=== PATIENT | female | born 1995 | race Caucasian/White ===

== ENCOUNTER 2017-02-27 11:26 | Emergency (ER) | payer OTHER ==
[2017-02-27 11:50] VITALS: O2SAT 98
[2017-02-27] MEDS ORDERED: LORazepam 2 MG/ML INJ IVP ONE (12:01)
[2017-02-27] MEDS ORDERED: NS 1,000 ML IV ONE (12:01)
--- NOTE | 2017-02-27 12:04 | EDPHY ---
H & P Stated Complaint: Vertigo ;developed tunnel vision,mouth numbness 2 days ago Time Seen by Provider: 02/27/17 11:49 HPI/ROS: CHIEF COMPLAINT: Paresthesias HISTORY OF PRESENT ILLNESS: The patient is a 21-year-old female who comes to the emergency department her mom complaining of paresthesias in her mouth, both hands and both feet as well as face bilaterally. She also complains of tunnel vision in her right eye worse than her left. She states that she had a cough last week that resolved with on Monday but then on Monday she began having some vertigo which resolved by Monday but since Monday he has had these strange paresthesias. No chest pain or shortness of breath. She has a history of significant anxiety as well as a stutter. Mom states that these have not changed. She has not had any difficulty speaking or moving. No weakness or numbness. No bowel or bladder abnormalities. No recent fevers or infections. She did get a flu shot several months ago. REVIEW OF SYSTEMS: Constitutional: denies: chills, fever, recent illness, recent injury EENTM: denies: blurred vision, double vision, nose congestion Respiratory: denies: cough, shortness of breath Cardiac: denies: chest pain, irregular heart rate, lightheadedness, palpitations Gastrointestinal/Abdominal: denies: abdominal pain, diarrhea, nausea, vomiting, blood streaked stools Genitourinary: denies: dysuria, frequency, hematuria, pain Musculoskeletal: denies: joint pain, muscle pain Skin: denies: lesions, rash, jaundice, bruising Neurological: See HPI Hematologic/Lymphatic: denies: blood clots, easy bleeding, easy bruising Immunologic/allergic: denies: HIV/AIDS, transplant - Physical Exam General Appearance: WD/WN, mild distress Eyes, Ears, Nose, Throat Exam: PERRL/EOMI, normal ENT inspection, pharynx normal normal peripheral exam on confrontational testing Neck: non-tender, full range of motion, supple, normal inspection. No: stiff neck, tender lateral Cardiovascular/Chest: normal peripheral pulses, regular rate, rhythm Respiratory: chest non-tender, lungs clear, normal breath sounds. No: crackles , rhonchi Gastrointestinal/Abdominal: normal bowel sounds, non tender, soft Back Exam: normal inspection Extremity: normal range of motion, non-tender, normal inspection Mental Status: alert, oriented x 3 CN's Exam: normal hearing, normal speech, PERRL, normal eye position, normal gag reflex, normal pupil position, normal speech. No: facial asymmetry, facial droop, facial paresthesias, gaze palsy, tongue deviation to R, tongue deviation to L, mild stutter which mom states is baseline. Coordination/Gait: normal finger to nose, normal gait Motor/Sensory: normal. No: motor deficit, sensory deficit, pronator drift (R), pronator drift (L), weak motor strength RUE, weak motor strength LUE, weak motor strength RLE, weak motor strength LLE DTR: tricep (R): 2+, tricep (L): 2+, knee (R): 2+, knee (L): 2+ Skin Exam: warm/dry, normal color Lymphatic: no adenopathy Source: Patient, Family - Personal History LMP (Females 10-55): 8-14 Days Ago Current Tetanus Diphtheria and Acellular Pertussis (TDAP): Yes - Medical/Surgical History Hx Asthma: No Hx Chronic Respiratory Disease: No Hx Diabetes: No Hx Cardiac Disease: No Hx Renal Disease: No Hx Cirrhosis: No Hx Alcoholism: No Other PMH: neg - Family History Significant Family History: No pertinent family hx - Social History Smoking Status: Never smoked Alcohol Use: Sober Drug Use: None Constitutional: Initial Vital Signs Temperature (C) 37.3 C 02/27/17 11:26 Heart Rate 119 H 02/27/17 11:26 Respiratory Rate 18 02/27/17 11:26 Blood Pressure 135/110 H 02/27/17 11:26 O2 Sat (%) 96 02/27/17 11:26 O2 Delivery Mode Room Air Allergies/Adverse Reactions: No Known Allergies Allergy (Unverified 02/27/17 11:31) Home Medications: Medication Instructions Recorded NK [No Known Home Meds] 02/27/17 Medical Decision Making - Diagnostics EKG Interpretation: An EKG obtained and was read and documented in trace view. Please see trace view for full reading and report. Sinus rhythm, no acute ischemic changes ED Course/Re-evaluation: The patient has a completely normal neuro exam other than her mild stutter which [facility] [place] baseline. Her NIH stroke score 0. She has normal reflexes and strength and sensation. She has a history of anxiety and thinks that this may be a component. I will treat her with Ativan and obtain electrolytes and EKG. We discussed the possibility also of MS although she does not have any objective deficit this this time. 10:05 p.m. patient is feeling slightly better after Ativan although still has some paresthesias. Mom states that she appears to be at baseline. At this point they would like to go home. We did discuss follow up with her primary and I will refer them to Neurology. She does not have any focal deficits at this time. She does not have a headache. Her symptoms are not consistent with a tumor or stroke or infection. We did discuss multiple sclerosis, Guillain- [place] etc withdrawal unusual and you would expect a have some objective deficit reproducible. At this point they feel reassured and would like to go home. We did discuss indications for returning and at that time would likely do neuro imaging. Mom and patient feel comfortable with this plan and her grateful. Differential Diagnosis: Partial list of the Differential diagnosis considered include but were not limited to; anxiety, electrolyte abnormality, paresthesias and although unlikely based on the history and physical exam, I also considered neuropathy, MS, Guillain-[place], CVA, acute coronary disease, dissection. I discussed these differential diagnoses and the plan with the patient as well as the usual and expected course. The patient understands that the diagnosis is provisional and that in medicine we are not always correct and that further workup is often warranted. Usual and customary warnings were given. All of the patient's questions were answered. The patient was instructed to return to the emergency department should the symptoms at all worsen or return, otherwise to followup with the physician as we discussed. - Data Points Laboratory Results: Laboratory Results 02/27/17 11:35 02/27/17 11:35 02/27/17 02/27/17 02/27/17 11:35 11:35 11:35 WBC 6.78 10^3/uL 10^3/uL (3.80-9.50) RBC 5.19 10^6/uL 10^6/uL (4.18-5.33) Hgb 16.4 g/dL H g/dL (12.6-16.3) POC Hgb Hct 45.8 % % (38.0-47.0) POC Hct MCV 88.2 fL fL (81.5-99.8) MCH 31.6 pg pg (27.9-34.1) MCHC 35.8 g/dL g/dL (32.4-36.7) RDW 12.1 % % (11.5-15.2) Plt Count 327 10^3/uL 10^3/uL (150-400) MPV 9.1 fL fL (8.7-11.7) Neut % (Auto) 59.1 % % (39.3-74.2) Lymph % (Auto) 30.5 % % (15.0-45.0) Mccreary % (Auto) 6.8 % % (4.5-13.0) Eos % (Auto) 2.8 % % (0.6-7.6) Baso % (Auto) 0.7 % % (0.3-1.7) Nucleat RBC Rel Count 0.0 % % (0.0-0.2) Absolute Neuts (auto) 4.00 10^3/uL 10^3/uL (1.70-6.50) Absolute Lymphs (auto) 2.07 10^3/uL 10^3/uL (1.00-3.00) Absolute Monos (auto) 0.46 10^3/uL 10^3/uL (0.30-0.80) Absolute Eos (auto) 0.19 10^3/uL 10^3/uL (0.03-0.40) Absolute Basos (auto) 0.05 10^3/uL 10^3/uL (0.02-0.10) Absolute Nucleated RBC 0.00 10^3/uL 10^3/uL (0-0.01) Immature Gran % 0.1 % % (0.0-1.1) Immature Gran # 0.01 10^3/uL 10^3/uL (0.00-0.10) POC Sodium Sodium 146 mEq/L H mEq/L (134-144) POC Potassium Potassium 3.9 mEq/L mEq/L (3.5-5.2) POC Chloride Chloride 106 mEq/L mEq/L (97-110) Carbon Dioxide 25 mEq/l mEq/l (22-31) Anion Gap 15 mEq/L mEq/L (8-16) POC BUN BUN 12 mg/dL mg/dL (7-23) Creatinine 0.9 mg/dL mg/dL (0.6-1.0) POC Creatinine Estimated GFR > 60 Glucose 94 mg/dL mg/dL (70-100) POC Glucose Calcium 9.7 mg/dL mg/dL (8.5-10.4) Beta HCG, Qual NEGATIVE 02/27/17 11:30 WBC RBC Hgb POC Hgb 16.3 gm/dL gm/dL (12.6-16.3) Hct POC Hct 48 % H % (38-47) MCV MCH MCHC RDW Plt Count MPV Neut % (Auto) Lymph % (Auto) Mccreary % (Auto) Eos % (Auto) Baso % (Auto) Nucleat RBC Rel Count Absolute Neuts (auto) Absolute Lymphs (auto) Absolute Monos (auto) Absolute Eos (auto) Absolute Basos (auto) Absolute Nucleated RBC Immature Gran % Immature Gran # POC Sodium 144 mEq/L mEq/L (134-144) Sodium POC Potassium 3.5 mEq/L mEq/L (3.3-5.0) Potassium POC Chloride 104 mEq/L mEq/L (97-110) Chloride Carbon Dioxide Anion Gap POC BUN 11 mg/dL mg/dL (7-23) BUN Creatinine POC Creatinine 0.8 mg/dL mg/dL (0.6-1.0) Estimated GFR Glucose POC Glucose 98 mg/dL mg/dL (70-100) Calcium Beta HCG, Qual Medications Given: Discontinued Medications Sodium Chloride (Ns) 1,000 mls @ 0 mls/hr IV EDNOW ONE; Wide Open PRN Reason: Protocol Stop: 02/27/17 12:02 Last Admin: 02/27/17 12:13 Dose: 1,000 mls Lorazepam (Ativan Injection) 1 mg IVP EDNOW ONE Stop: 02/27/17 12:02 Last Admin: 02/27/17 12:13 Dose: 1 mg Point of Care Test Results: 02/27/17 11:30 POC Sodium 144 POC Potassium 3.5 POC Chloride 104 POC BUN 11 POC Creatinine 0.8 POC Glucose 98 Departure - Departure Disposition: Home, Routine, Self-Care Clinical Impression: Paresthesia Condition: Fair Instructions: Paresthesia (ED) Referrals: Dimple Nicole MD [Primary Care Provider] - 1-2 days without fail Nikita Christine DO [Doctor of Osteopathy] - 5-7 days, call for appt.
[2017-02-27 12:05] LABS: % IMMATURE GRANULYOCYTES 0.1 % (0.0-1.1); ABSOLUTE IMMATURE GRANULOCYTES 0.01 10^3/uL (0.00-0.10); ADD DIFF? NO; ADD MORPH? NO; ADD SCAN? NO; ATYPICAL LYMPHOCYTE FLAG 20 (0-99); FRAGMENT RBC FLAG 0 (0-99); HEMATOCRIT 45.8 % (38.0-47.0); HEMOGLOBIN 16.4 g/dL (12.6-16.3); LEFT SHIFT FLG 0 (0-99); LIPEMIA HEMOLYSIS FLAG 90 (0-99); MEAN CELL HEMOGLOBIN 31.6 pg (27.9-34.1); MEAN CELL HEMOGLOBIN CONCENTR. 35.8 g/dL (32.4-36.7); MEAN CELL VOLUME 88.2 fL (81.5-99.8); MEAN PLATELET VOLUME 9.1 fL (8.7-11.7); PLATELET CLUMPS FLAG 0 (0-99); PLATELET COUNT 327 10^3/uL (150-400); RED BLOOD CELL COUNT 5.19 10^6/uL (4.18-5.33); RED CELL DISTRIBUTION WIDTH 12.1 % (11.5-15.2)
[2017-02-27 12:11] LABS: ANION GAP 15 mEq/L (8-16); CALCIUM 9.7 mg/dL (8.5-10.4); CARBON DIOXIDE 25 mEq/l (22-31); CHLORIDE 106 mEq/L (97-110); CREATININE 0.9 mg/dL (0.6-1.0); GLOMERULAR FILTRATION RATE > 60; GLUCOSE 94 mg/dL (70-100); POTASSIUM 3.9 mEq/L (3.5-5.2); SODIUM 146 mEq/L (134-144)
--- NOTE | 2017-02-27 12:11 | CPEKG ---
Heart Rate: 93 RR Interval: 645 P-R Interval: 148 QRSD Interval: 86 QT Interval: 352 QTC Interval: 438 P [place]: 75 QRS [place]: 77 T Wave [place]: 39 EKG Severity - NORMAL ECG - EKG Impression: SINUS RHYTHM Electronically Signed By: Nikita Soto 27-Feb-2017 12:17:34
[2017-02-27 13:13] VITALS: BP 130/76; PULSE 80; RESP 16; TEMP 98.6
== END 2017-02-27 13:12 | disposition home or self-care (01) ==
DX: R20.9 Unspecified disturbances of skin sensation (principal); E86.9 Volume depletion, unspecified
CPT/HCPCS: 82947-QW; 96374; J2060